=== PATIENT | male | born 1955 | race Caucasian/White ===

== ENCOUNTER 2024-07-08 13:11 | Outpatient (CLI) | payer MEDICARE, SELFPAY ==
--- NOTE | 2024-07-08 06:00 | DI.RAD_ITS ---
Exam(s) XR PAIN CLINIC LUMBAR SP 2V EXAM: XR PAIN CLINIC LUMBAR SP 2V CLINICAL HISTORY: DX: Lumbar Radiculopathy TECHNIQUE: 2D and realtime digital imaging was performed. CONTRAST MATERIAL: Refer to procedure report. COMPARISON: No exams were available for comparison FINDINGS: Fluoroscopy was provided for Dr. Salazar during the performance of a lumbar epidural steroid injecti on. Please refer to the procedure report for complete details. Ka,r=21.7 mGy IMPRESSION: RADIATION DOSE DELIVERED: 0.0 0.0 0
[2024-07-08 13:23] VITALS: BP 132/83; PULSE 90; RESP 18; TEMP 37; O2SAT 96
--- NOTE | 2024-07-08 13:23 | PDOC.PAIN_ITS ---
Date of service: 07/08/24 Time of Service: 13:58 Pain Managment Procedure Note Procedure Note Procedure Note: Lumbar Interlaminar Epidural Steroid Injection ? Location: L4-5 ? Pre-procedure Diagnosis: M54.16- Radiculopathy, LUMBAR region ? Post-procedure Diagnosis:? The same as above ? Sedation:? ? None ? Medication: Depo-Medrol 80 mg, Omnipaque 1 mL ? Estimated blood loss:? less than 2 cc ? Surgeon:? 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 Procedure Detail:? The procedure and potential risks were explained to the patient and informed written consent was obtained. The patient was escorted to the procedure room and placed in the prone position. Pillows were utilized for proper positioning and comfort. Time out was performed in the procedure room with nursing staff confirming the patient's identity, procedure to be performed, allergies, and any blood thinning or anti-platelet medications.? The patient's neck and upper back was prepped with ChloraPrep and draped in a sterile fashion. Sterile technique was maintained throughout the procedure.? Sterile gloves were used, a face mask was worn, and new single dose vials of all medications were used with the top being swabbed with alcohol and given time to dry prior to withdrawal of medication. Lidocane 1% was used to anesthetize the skin.Using a 25-gauge 1.5 inch needle, 1% lidocaine was instilled into the superficial soft tissue overlying the targeted area to provide local anesthesia. With fluoroscopic guidance, a 17 -gauge Tuohy needle was advanced toward the interlaminar space of L5-S1. The needle was then advance through the ligamentum flavum and into the posterior epidural space using the loss of resistance technique. Correct needle placement was confirmed through review of the AP and contralateral oblique fluoroscopic views. Following negative aspiration, one cc of Omnipaque 240 contrast was injected which confirmed good flow throughout the epidural space and no evidence of vascular flow or flow into adjacent compartments. Next, following negative aspiration, 1 cc's of normal saline and 80mg of Depo-Medrol was injected. The needle was gently removed. The patient tolerated the procedure well and was transported to the recovery area for observation and discharge instructions. Permanent images saved and recorded. PAIN PRE-PROCEDURE 10/26 POST-PROCEDURE 06/26 Plan:? Follow up prn. COMMENT: Patient pending surgical evaluation in 2 weeks at [facility]. Report would consider repeating injection if not a surgical candidate and he gets some significant relief from this. Coding Conscious Sedation used for procedure: No CPT Codes: Inj Spine L/S w/Imaging - [id number] ([id number] ~G) Additional Codes: Date of Service (89383) Date of service: 07/08/24
[2024-07-08 13:40] VITALS: PULSE 96; O2SAT 95
[2024-07-08 13:50] VITALS: PULSE 90; O2SAT 96
[2024-07-08] MEDS: Omnipaque 240 MG/ML 50 ML BTL IJ (13:58)
[2024-07-08] MEDS: Epidural Tray 1 EACH MC (13:58)
[2024-07-08] MEDS: methylPREDNISolone ACETATE 40 MG/ML VIAL IJ (13:59)
== END 2024-07-08 13:12 | disposition home or self-care (01) ==
LOC: PC 13:13
PROVIDERS: PCP Emergency Medicine Undersea and Hyperbaric Medicine; Visit Provider Anesthesiology Pain Medicine
DX: M54.16 Radiculopathy, lumbar region (principal); M54.50 Low back pain, unspecified
CPT/HCPCS: 62323; 72100; J1010; Q9967

== ENCOUNTER 2025-02-04 14:42 | Outpatient (CLI) | payer MEDICARE, SELFPAY ==
[2025-02-04 14:46] VITALS: BP 146/85; PULSE 86; RESP 20; TEMP 37.1; O2SAT 94
--- NOTE | 2025-02-04 14:59 | PDOC.PAIN ---
Date of service: 02/04/25 Time of Service: 15:16 Pain Managment Procedure Note Procedure Note Procedure Note: ?Sacroiliac Joint Steroid Injection ? Location: ? Right SI Joint? Pre-procedure Diagnosis: Sacroiliitis, not elsewhere classified - M46.1 ? Post-procedure Diagnosis:? The same as above ? Sedation:? NONE ? Medication: Depo-Medrol 40 mg, bupivacaine 0.5% 1 mL, Omnipaque 0.25 mL per joint ? Estimated blood loss:? less than 2 cc ? Surgeon:? Shan Salazar MD ? COMMENT: THIS WILL BE BOTH DIAGNOSTIC AND THERAPEUTIC ? Procedure Detail:? The procedure and potential risks were explained to the patient and informed written consent was obtained. The patient was escorted to the procedure room and placed in the prone position. Pillows were utilized for proper positioning and comfort. Time out was performed in the procedure room with nursing staff confirming the patient's identity, procedure to be performed, allergies, and any blood thinning or anti-platelet medications. The patient's lumbosacral area was prepped with ChloraPrep and draped in a sterile fashion. Sterile technique was maintained throughout the procedure.? Sterile gloves were used, a face mask was worn, and new single dose vials of all medications were used with the top being swabbed with alcohol and given time to dry prior to withdrawal of medication. Lidocaine 1% was used to anesthetize the skin. With fluoroscopic guidance, a 22-gauge 3.5 spinal needle was advanced into the posteroinferior aspect of the Right SI joint . Confirmation of intra-articular position of the needle tip was obtained with injection of 0.25cc of Omnipaque 240 contrast which showed appropriate spread within the joint.? Following negative aspiration, 40mg of methylprednisolone mixed with 1 mL of bupivacaine 0.5% was injected.? The needle was gently removed. ?The patient tolerated the procedure well and was discharged home with instructions.? Permanent images saved and recorded. Plan:? Follow up prn. PAIN PRE PROCEDURE 8/10 POST PROCEDURE 0/10 COMMENT: 100 % BETTER AFTER INJECTION Consider transforaminal steroid injection on the right at L1-2 with dexamethasone if that is not effective. Coding Conscious Sedation used for procedure: No CPT Codes: SI Joint Inj; incl Fluoro - [id number] ([id number] ~G) Additional Codes: Date of Service (04459) Diagnoses: Sacroiliitis, not elsewhere classified - M46.1
[2025-02-04 15:04] VITALS: PULSE 53; O2SAT 95
[2025-02-04 15:10] VITALS: PULSE 91; O2SAT 95
--- NOTE | 2025-02-04 15:14 | DI.RAD_ITS ---
Exam(s) XR PAIN CLINIC SACRIOILIAC 2V EXAM: XR PAIN CLINIC SACRIOILIAC 2V CLINICAL HISTORY: DX: Sacroiliac Dysfunction. TECHNIQUE: Fluoroscopy was provided for the referring physician for guidance with performing pain clinic injection procedure. COMPARISON: No exams were available for comparison FINDINGS: Please see procedure note for details. Fluoro time: 11 seconds RADIATION DOSE DELIVERED: Ka,r=6.94 mGy
[2025-02-04] MEDS: Bupivacaine 0.5% Pres-Free 10 ML VIAL IJ (15:17)
[2025-02-04] MEDS: Omnipaque 240 MG/ML 50 ML BTL IJ (15:17)
[2025-02-04] MEDS: Nerve Block Tray 1 EACH MC (15:17)
[2025-02-04] MEDS: methylPREDNISolone ACETATE 80 MG/ML VIAL IJ (15:17)
== END 2025-02-04 14:43 | disposition home or self-care (01) ==
LOC: PC 14:43
PROVIDERS: PCP Emergency Medicine Undersea and Hyperbaric Medicine; Visit Provider Anesthesiology Pain Medicine
DX: M54.50 Low back pain, unspecified (principal); M46.1 Sacroiliitis, not elsewhere classified
CPT/HCPCS: 27096; 72200; J0665; J1010; Q9967